=== PATIENT | female | born 1960 | race Caucasian/White ===

== ENCOUNTER → 2021-02-13 | Outpatient (CLI) | payer OTHER | LOC: HYPER 08:59 | PROVIDERS: ATTEND Emergency Medicine | DX: T85.42XA Displacement of breast prosthesis and implant, initial encounter (principal); S21.002A Unspecified open wound of left breast, initial encounter; C50.912 Malignant neoplasm of unspecified site of left female breast; L59.8 Other specified disorders of the skin and subcutaneous tissue related to radiation; L98.8 Other specified disorders of the skin and subcutaneous tissue; M06.9 Rheumatoid arthritis, unspecified; F41.9 Anxiety disorder, unspecified; Z79.82 Long term (current) use of aspirin; Z90.12 Acquired absence of left breast and nipple; Z79.899 Other long term (current) drug therapy; Z96.653 Presence of artificial knee joint, bilateral; Y83.1 Surgical operation with implant of artificial internal device as the cause of abnormal reaction of the patient, or of later complication, without mention of misadventure at the time of the procedure; Y84.2 Radiological procedure and radiotherapy as the cause of abnormal reaction of the patient, or of later complication, without mention of misadventure at the time of the procedure; Y92.238 Other place in hospital as the place of occurrence of the external cause; X58.XXXA Exposure to other specified factors, initial encounter; Y93.89 Activity, other specified; Y99.8 Other external cause status ==

== ENCOUNTER → 2021-02-20 | Outpatient (CLI) | payer OTHER | LOC: HYPER 08:04 | PROVIDERS: ATTEND Emergency Medicine | DX: T85.4 Mechanical complication of breast prosthesis and implant (principal); L59.8 Other specified disorders of the skin and subcutaneous tissue related to radiation; C50.912 Malignant neoplasm of unspecified site of left female breast; M19.90 Unspecified osteoarthritis, unspecified site; E66.9 Obesity, unspecified; F41.9 Anxiety disorder, unspecified; Z68.42 Body mass index [BMI] 45.0-49.9, adult; Z79.82 Long term (current) use of aspirin; Z79.899 Other long term (current) drug therapy; Y83.1 Surgical operation with implant of artificial internal device as the cause of abnormal reaction of the patient, or of later complication, without mention of misadventure at the time of the procedure; Y84.2 Radiological procedure and radiotherapy as the cause of abnormal reaction of the patient, or of later complication, without mention of misadventure at the time of the procedure ==

== ENCOUNTER → 2021-03-05 | Outpatient (CLI) | payer OTHER | LOC: HYPER 08:16 | PROVIDERS: ATTEND Emergency Medicine | DX: T85.4 Mechanical complication of breast prosthesis and implant (principal); T81.89XD Other complications of procedures, not elsewhere classified, subsequent encounter; S21.002D Unspecified open wound of left breast, subsequent encounter; L59.8 Other specified disorders of the skin and subcutaneous tissue related to radiation; C50.912 Malignant neoplasm of unspecified site of left female breast; M19.90 Unspecified osteoarthritis, unspecified site; E66.9 Obesity, unspecified; F41.9 Anxiety disorder, unspecified; Z68.42 Body mass index [BMI] 45.0-49.9, adult; Z79.82 Long term (current) use of aspirin; Z96.653 Presence of artificial knee joint, bilateral; Z90.12 Acquired absence of left breast and nipple; X58.XXXD Exposure to other specified factors, subsequent encounter; Y83.1 Surgical operation with implant of artificial internal device as the cause of abnormal reaction of the patient, or of later complication, without mention of misadventure at the time of the procedure; Y84.2 Radiological procedure and radiotherapy as the cause of abnormal reaction of the patient, or of later complication, without mention of misadventure at the time of the procedure; Y83.8 Other surgical procedures as the cause of abnormal reaction of the patient, or of later complication, without mention of misadventure at the time of the procedure ==

== ENCOUNTER → 2021-04-03 | Outpatient (CLI) | payer OTHER | LOC: HYPER 10:21 | PROVIDERS: ATTEND Emergency Medicine | DX: T85.4 Mechanical complication of breast prosthesis and implant (principal); T81.89XD Other complications of procedures, not elsewhere classified, subsequent encounter; S21.002D Unspecified open wound of left breast, subsequent encounter; L59.8 Other specified disorders of the skin and subcutaneous tissue related to radiation; C50.912 Malignant neoplasm of unspecified site of left female breast; M19.90 Unspecified osteoarthritis, unspecified site; E66.9 Obesity, unspecified; F41.9 Anxiety disorder, unspecified; Z68.42 Body mass index [BMI] 45.0-49.9, adult; Z79.82 Long term (current) use of aspirin; Z96.653 Presence of artificial knee joint, bilateral; Z90.12 Acquired absence of left breast and nipple; X58.XXXD Exposure to other specified factors, subsequent encounter; Y83.1 Surgical operation with implant of artificial internal device as the cause of abnormal reaction of the patient, or of later complication, without mention of misadventure at the time of the procedure; Y84.2 Radiological procedure and radiotherapy as the cause of abnormal reaction of the patient, or of later complication, without mention of misadventure at the time of the procedure; Y83.8 Other surgical procedures as the cause of abnormal reaction of the patient, or of later complication, without mention of misadventure at the time of the procedure ==

== ENCOUNTER → 2021-04-30 | Outpatient (CLI) | payer OTHER | LOC: HYPER 09:14 | PROVIDERS: ATTEND Emergency Medicine | DX: T85.4 Mechanical complication of breast prosthesis and implant (principal); S21.002D Unspecified open wound of left breast, subsequent encounter; L98.492 Non-pressure chronic ulcer of skin of other sites with fat layer exposed; L59.8 Other specified disorders of the skin and subcutaneous tissue related to radiation; C50.912 Malignant neoplasm of unspecified site of left female breast; M19.90 Unspecified osteoarthritis, unspecified site; M06.9 Rheumatoid arthritis, unspecified; E66.9 Obesity, unspecified; F41.9 Anxiety disorder, unspecified; Z68.42 Body mass index [BMI] 45.0-49.9, adult; Z79.82 Long term (current) use of aspirin; Z79.899 Other long term (current) drug therapy; Y83.8 Other surgical procedures as the cause of abnormal reaction of the patient, or of later complication, without mention of misadventure at the time of the procedure; X58.XXXD Exposure to other specified factors, subsequent encounter; Y84.2 Radiological procedure and radiotherapy as the cause of abnormal reaction of the patient, or of later complication, without mention of misadventure at the time of the procedure ==